=== PATIENT | male | born 1995 | race Caucasian/White ===

== ENCOUNTER 2021-09-20 06:36 | Emergency (ER) | payer SELFPAY ==
[~2021-09-20] VITALS: Ht 187 cm; Wt 119.8 kg
--- NOTE | 2021-09-20 06:54 | ED EENT ---
History of Present Illness General Chief Complaint: Dental Problems/Pain Stated Complaint: LT SIDE JAW PAIN Source: patient Exam Limitations: no limitations History of Present Illness Date Seen by Provider: Sep 20, 2021 Time Seen by Provider: 06:47 Initial Comments Patient is a 25-year-old male who presents with left posterior jaw pain/dental tenderness. Patient reports progressive pain over the past 2 to 3 days. Reports gingival and dental sensitivity with eating and touch. He is taking ibuprofen with limited relief. Denies trismus drooling dysphonia. He has not contacted a dentist. No other acute symptoms or complaints Timing/Duration: gradual Severity: moderate Location: facial, dental Prearrival Treatment: other Modifying Factors: Improves With Other Associated Symptoms: other Allergies and Home Medications Patient Home Medication List Home Medication List Reviewed: Yes Review of Systems Review of Systems Constitutional: no symptoms reported Eyes: See HPI Ears: See HPI Mouth: see HPI Throat: see HPI Past [id number] Hx Patient Social History Tobacco Use?: Yes Physical Exam Height, Weight, BMI Height: '" Weight: lbs. oz. kg; BMI Method: General Appearance: no apparent distress Eyes: bilateral eye normal inspection, bilateral eye EOMI Ears: bilateral ear auricle normal Nose: normal inspection Mouth/Throat: other (Left posterior molar tenderness, gingival swelling, no discrete soft tissue abscess, swelling of left cheek without erythema induration or fluctuance) Cardiovascular: normal peripheral pulses, regular rate, rhythm Respiratory: chest non-tender, lungs clear Gastrointestinal: non tender, soft Neurologic/Psychiatric: alert, normal mood/affect Departure Communication (PCP) Dental caries without discrete abscess. Impression Primary Impression: Pain due to dental caries Disposition: 01 HOME, SELF-CARE Condition: Stable Departure-Patient Inst. Decision time for Depature: 06:52 Patient Instructions: Dental Pain Add. Discharge Instructions: Please fill antibiotics and take pain medications and antibiotics and follow up with local dentist All discharge instructions reviewed with patient and/or family. Voiced understanding. Scripts Hydrocodone/Acetaminophen (Hydrocodone-Acetamin 5-325 mg) 1 Each Tablet 1 TAB PO Q4H PRN for PAIN-MODERATE (5-7), #10 TAB Prov: SCOOBY LIRIANO DO 09/20/21 Hydrocodone/Acetaminophen (Hydrocodone-Acetamin 5-325 mg) 1 Each Tablet 1 TAB PO Q4H PRN for PAIN-MODERATE (5-7), #10 TAB Prov: SCOOBY LIRIANO DO 09/20/21 Penicillin V Potassium (Penicillin V Potassium) 500 Mg Tablet 500 MG PO QID, #40 TAB Prov: SCOOBY LIRIANO DO 09/20/21 SCOOBY LIRIANO DO Sep 20, 2021 06:54
[2021-09-20] MEDS ORDERED: ACHD5005 PO ×2 (06:55→06:59)
[2021-09-20] MEDS ORDERED: PENI500T PO (06:55)
[2021-09-20 07:30] VITALS: BP 166/79
== END 2021-09-20 07:27 | disposition home or self-care (01) ==
LOC: ER FS 06:39
DX: K02.9 Dental caries, unspecified (principal); Z72.0 Tobacco use
CPT/HCPCS: 99281

== ENCOUNTER 2022-02-28 15:15 | Emergency (ER) | payer MEDICAID ==
[~2022-02-28] VITALS: Ht 188 cm; Wt 117.9 kg
[~2022-02-28 15:15] MED LIST: ACHD5005 PO; PENI500T PO
[2022-02-28] MEDS ORDERED: ONDANSETRON 4 MG/2 ML (SDV) Z0FRAN IVP STA (15:33)
[2022-02-28] MEDS ORDERED: NS IV 1000 ML 1,000 ML IV STA (15:33)
[2022-02-28 15:41] LABS: BASOPHILS # (AUTO) 0.1 10^3/uL (0.0-0.1); BASOPHILS % (AUTO) 1 % (0-10); EOSINOPHILS # (AUTO) 0.1 10^3/uL (0.0-0.3); EOSINOPHILS % (AUTO) 1 % (0-10); HEMATOCRIT 49 % (40-54); HEMOGLOBIN 16.5 g/dL (13.3-17.7); LYMPHOCYTES # (AUTO) 1.3 10^3/uL (1.0-4.0); LYMPHOCYTES % (AUTO) 10 % (12-44); MEAN CORPUSCULAR HEMOGLOBIN 29 pg (25-34); MEAN CORPUSCULAR HGB CONC 34 g/dL (32-36); MEAN CORPUSCULAR VOLUME 85 fL (80-99); MEAN PLATELET VOLUME 9.7 fL (9.0-12.2); MONOCYTES # (AUTO) 0.6 10^3/uL (0.0-1.0); MONOCYTES % (AUTO) 5 % (0-12); NEUTROPHILS # (AUTO) 10.7 10^3/uL (1.8-7.8); NEUTROPHILS % (AUTO) 83 % (42-75); PLATELET COUNT 252 10^3/uL (130-400); WHITE BLOOD COUNT 12.9 10^3/uL (4.3-11.0)
--- NOTE | 2022-02-28 15:41 | ED GI ---
General Chief Complaint: Abdominal/GI Problems Stated Complaint: ABD PAIN/NAUSEA Source of Information: Patient History of Present Illness Date Seen by Provider: February 28, 2022 Time Seen by Provider: 15:19 Initial Comments 26-year-old male presenting with complaints of nausea when he is up moving around. He has had 1 episode of vomiting. He states this started yesterday after he had worked really hard and sweated a lot. He denies any diarrhea or change in his bowels. He has no pain with urination. He denies any abdominal pain. He feels better when he is sitting down resting but when he gets up walking around he gets nauseated. He denies any ill contacts. He denies drinking alcohol or using drugs recently. He states he occasionally smokes marijuana. He denies eating anything different to her anything that might of triggered him to have nausea. Timing/Duration: 1-2 Days Activities at Onset: Activity (at work) Modifying Factors: Worsens With Movement (being up and moving around makes him feel bad) Associated Symptoms: No Back Pain, No Chest Pain, No Diaphoresis; Fever/Chills (subjective fever but did not have thermometer to check his temperature); No Fatigue, No Headache, No Heartburn; Nausea/Vomiting; No Rash, No Shortness of Air, No Swelling/Mass in Abdomen, No Syncope, No Weakness Allergies and Home Medications Allergies Coded Allergies: diazepam (Verified Allergy, Intermediate, Rash, 02/28/22) propoxyphene (Verified Allergy, Unknown, 02/28/22) Told he was allergic to it as a child Patient Home Medication List Home Medication List Reviewed: Yes Hydrocodone/Acetaminophen (Hydrocodone-Acetamin 5-325 mg) 1 Each Tablet, 1 TAB PO Q4H PRN for PAIN-MODERATE (5-7) Prescribed by: SCOOBY LIRIANO on 09/20/21 0655 Hydrocodone/Acetaminophen (Hydrocodone-Acetamin 5-325 mg) 1 Each Tablet, 1 TAB PO Q4H PRN for PAIN-MODERATE (5-7) Prescribed by: SCOOBY LIRIANO on 09/20/21 0700 Ondansetron (Ondansetron Odt) 4 Mg Tab.rapdis, 4 MG PO Q6H PRN for NAUSEA/VOMITING Prescribed by: ARTURO GARCIA on 02/28/22 1702 Penicillin V Potassium (Penicillin V Potassium) 500 Mg Tablet, 500 MG PO QID Prescribed by: SCOOBY LIRIANO on 09/20/21 0655 Review of Systems Review of Systems Constitutional: No chills; fever (Subjective) EENTM: No Symptoms Reported Respiratory: No Symptoms Reported Cardiovascular: No Symptoms Reported Gastrointestinal: See HPI Genitourinary: Denies Burning, Denies Frequency, Denies Pain Musculoskeletal: no symptoms reported Skin: No rash Psychiatric/Neurological: Denies Headache Past Dqrcwbl-Ntuvly-Hgbddd Hx Patient Social History Substance use?: Yes Substance type: Marijuana Alcohol Use?: No Past Medical History Surgery/Hospitalization HX: Hypertension Physical Exam Vital Signs Vital Signs - First Documented 02/28/22 15:17 Temp 36.4 Pulse 82 Resp 18 B/P (MAP) 130/70 (90) Pulse Ox 98 O2 Delivery Room Air Capillary Refill : Height/Weight/BMI Height: '" Weight: lbs. oz. kg; 34.00 BMI Method: General Appearance: WD/WN, no apparent distress HEENT: PERRL/EOMI, normal ENT inspection, TMs normal, pharynx normal; No photophobia, No TM abnormal (R), No TM abnormal (L) Neck: non-tender, full range of motion, supple, normal inspection Respiratory: chest non-tender, lungs clear, normal breath sounds, no respiratory distress, no accessory muscle use Cardiovascular: normal peripheral pulses, regular rate, rhythm Gastrointestinal: normal bowel sounds, non tender, soft, no pulsatile mass Rectal: deferred Extremities: normal range of motion, non-tender, no calf tenderness, normal capillary refill Back: normal inspection, no CVA tenderness, no vertebral tenderness 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, no motor/sensory deficits, alert, oriented x 3 Skin: normal color, warm/dry Progress/Results/Core Measures Results/Orders Lab Results Laboratory Tests Test 02/28/22 15:24 Range/Units White Blood Count 12.9 H 4.3-11.0 10^3/uL Red Blood Count 5.73 H 4.30-5.52 10^6/uL Hemoglobin 16.5 13.3-17.7 g/dL Hematocrit 49 40-54 % Mean Corpuscular Volume 85 80-99 fL Mean Corpuscular Hemoglobin 29 25-34 pg Mean Corpuscular Hemoglobin Concent 34 32-36 g/dL Red Cell Distribution Width 13.7 10.0-14.5 % Platelet Count 252 130-400 10^3/uL Mean Platelet Volume 9.7 9.0-12.2 fL Immature Granulocyte % (Auto) 0 % Neutrophils (%) (Auto) 83 H 42-75 % Lymphocytes (%) (Auto) 10 L 12-44 % Monocytes (%) (Auto) 5 0-12 % Eosinophils (%) (Auto) 1 0-10 % Basophils (%) (Auto) 1 0-10 % Neutrophils # (Auto) 10.7 H 1.8-7.8 10^3/uL Lymphocytes # (Auto) 1.3 1.0-4.0 10^3/uL Monocytes # (Auto) 0.6 0.0-1.0 10^3/uL Eosinophils # (Auto) 0.1 0.0-0.3 10^3/uL Basophils # (Auto) 0.1 0.0-0.1 10^3/uL Immature Granulocyte # (Auto) 0.1 0.0-0.1 10^3/uL Sodium Level 138 135-145 MMOL/L Potassium Level 4.0 3.6-5.0 MMOL/L Chloride Level 102 98-107 MMOL/L Carbon Dioxide Level 23 21-32 MMOL/L Anion Gap 13 5-14 MMOL/L Blood Urea Nitrogen 14 7-18 MG/DL Creatinine 0.86 0.60-1.30 MG/DL Estimat Glomerular Filtration Rate 123 BUN/Creatinine Ratio 16 Glucose Level 100 70-105 MG/DL Calcium Level 9.3 8.5-10.1 MG/DL Corrected Calcium 8.5-10.1 MG/DL Total Bilirubin 0.6 0.1-1.0 MG/DL Aspartate Amino Transf (AST/SGOT) 20 5-34 U/L Alanine Aminotransferase (ALT/SGPT) 19 0-55 U/L Alkaline Phosphatase 163 H 40-136 U/L Total Protein 7.8 6.4-8.2 GM/DL Albumin 4.7 H 3.2-4.5 GM/DL Lipase 24 8-78 U/L My Orders Orders - ARTURO GARCIA MD Comprehensive Metabolic Panel (02/28/22 15:33) Lipase (02/28/22 15:33) Ed Iv/Invasive Line Start (02/28/22 15:33) Cbc With Automated Diff (02/28/22 15:33) Ns Iv 1000 Ml (Sodium Chloride 0.9%) (02/28/22 15:33) Ondansetron Injection (Zofran Injectio (02/28/22 15:33) Vital Signs/I&O 02/28/22 02/28/22 15:17 17:10 Temp 36.4 Pulse 82 72 Resp 18 16 B/P (MAP) 130/70 (90) 139/73 Pulse Ox 98 99 O2 Delivery Room Air Room Air Progress Progress Note #1: Progress Note Obtain basic labs and urinalysis as well as urine drug screen to look for possible reasons of him to be nauseated with being up moving. Give 1 L normal saline IV fluids for hydration, Zofran 4 mg IV for nausea. Progress Note #2: Progress Note Labs shows mild elevation of his white blood cell count to 12.9. The differential was normal. His chemistry panel was stable without acute significant abnormality. Patient states he feels better after treatment in the ED with fluids and Zofran. He did not want to go through a CT scan or additional treatment here and was interested in trying things at home with some nausea medicine available in case he became nauseated again at home. It is possible he may have just been a little dehydrated from working hard and sweating a lot yesterday. Encouraged to try and stay up on his hydration and add in some electrolyte drinks. Counseled on follow-up and return precautions. Departure Impression Primary Impression: Nausea and vomiting in adult Additional Impression: Dehydration Disposition: 01 HOME, SELF-CARE Condition: Stable Departure-Patient Inst. Decision time for Depature: 17:02 Referrals: NO,LOCAL PHYSICIAN (PCP) Primary Care Physician [facility] [place] [phone] for appointment and follow up Patient Instructions: Nausea and Vomiting, Adult ED, Dehydration, Adult ED Add. Discharge Instructions: Make sure to stay well-hydrated and try and drink more fluids. Consider electrolyte drinks such as Gatorade, Powerade or liquid IV mixed in water to help with hydration. You can use the dissolving nausea tablets to help keep your stomach settled so that he can eat and drink better in the next few days. If you start having abdominal pain, fever over 101 Fahrenheit, uncontrolled vomiting despite the medication then return or seek medical care for further evaluation All discharge instructions reviewed with patient and/or family. Voiced understanding. Scripts Ondansetron (Ondansetron Odt) 4 Mg Tab.rapdis 4 MG PO Q6H PRN for NAUSEA/VOMITING for 2 Days, #8 TAB 0 Refills Prov: ARTURO GARCIA MD 02/28/22 ARTURO GARCIA MD February 28, 2022 15:41
[2022-02-28 15:52] LABS: ALANINE AMINOTRANSFERASE 19 U/L (0-55); ALBUMIN 4.7 GM/DL (3.2-4.5); ALKALINE PHOSPHATASE 163 U/L (40-136); BILIRUBIN,TOTAL 0.6 MG/DL (0.1-1.0); BUN/CREATININE RATIO 16; CALCIUM 9.3 MG/DL (8.5-10.1); CARBON DIOXIDE 23 MMOL/L (21-32); CHLORIDE 102 MMOL/L (98-107); CREATININE SERUM 0.86 MG/DL (0.60-1.30); GFR ESTIMATED 123; GLUCOSE 100 MG/DL (70-105); LIPASE 24 U/L (8-78); SODIUM 138 MMOL/L (135-145); TOTAL PROTEIN 7.8 GM/DL (6.4-8.2)
[2022-02-28] MEDS ORDERED: ONDA4TAB11 PO (17:02)
[2022-02-28 17:10] VITALS: BP 139/73
== END 2022-02-28 17:11 | disposition home or self-care (01) ==
LOC: EDUNIT# 15:15 → ER FS 15:18
DX: R11.2 Nausea with vomiting, unspecified (principal); E86.0 Dehydration
CPT/HCPCS: 36415; 80053; 83690; 85025